=== PATIENT | male | born 1980 | race African-American/Black ===

== ENCOUNTER 2016-03-16 11:14 | Emergency (ER) | payer OTHER ==
[~2016-03-16] VITALS: Ht 175.3 cm; Wt 86.2 kg
[~2016-03-16 11:14] MED LIST: BENZ100C2 PO; PALI3TAB2 PO
[2016-03-16 11:30] VITALS: BP 122/80
[2016-03-16] MEDS ORDERED: AMOX500C PO (12:37)
--- NOTE | 2016-03-16 12:37 | PHYS DOC ---
Past Medical History Past Medical History: Bipolar, Depression Additional Past Medical Histor: HALLUCINATIONS Past Surgical History: No Surgical History Alcohol Use: Occasionally Drug Use: None Adult General Chief Complaint Chief Complaint: Congestion HPI HPI Patient is a 35 year old male presents to emergency department stating that he has been using Flonase at home and feels that he is probably been using it too much. He also states that he's been having issues with memory, and multiple other complaints is been going on for 15+ years. Patient states that he believes that he is dehydrated although entered the emergency department with multiple bottles of fluids to drink. Patient states he does not have a primary care physician he continues to state that he has a history of bipolar. Patient has been taken [id number] medications to help with his discomforts. Review of Systems Review of Systems Constitutional: Denies fever or chills [] Eyes: Denies change in visual acuity, redness, or eye pain [] HENT: nasal congestion denies sore throat [] Respiratory: Denies cough or shortness of breath [] Cardiovascular: No additional information not addressed in HPI [] Musculoskeletal: Denies back pain or joint pain [] Integument: Denies rash or skin lesions [] Neurologic: Denies headache, focal weakness or sensory changes [] Allergies Allergies Allergies Coded Allergies Type Severity Reaction Last Updated Verified paliperidone Allergy Unknown 03/16/16 No ziprasidone Allergy Unknown 03/16/16 No Physical Exam Physical Exam Constitutional: Well developed, well nourished, no acute distress, non-toxic appearance. [] HENT: Normocephalic, atraumatic, bilateral external ears normal, oropharynx moist, no oral exudates, nose normal. Bilateral tympanic membranes appear to be normal. Throat normal, nares appears to be very dry. Patient with tenderness over maxillary sinus areas. Eyes: PERRLA, EOMI, conjunctiva normal, no discharge. [] Neck: Normal range of motion, no tenderness, supple, no stridor. [] Cardiovascular:Heart rate regular rhythm, no murmur [] Lungs & Thorax: Bilateral breath sounds clear to auscultation [] Skin: Warm, dry, no erythema, no rash. [] Back: No tenderness Extremities: No tenderness, no cyanosis, no clubbing, ROM intact, no edema. [] Neurologic: Alert and oriented X 3, normal motor function, normal sensory function, no focal deficits noted. [] Psychologic: Affect normal, judgement normal, mood normal. [] Current Patient Data Vital Signs Vital Signs Date Time Temp Pulse Resp B/P Pulse Ox O2 Delivery O2 Flow Rate FiO2 03/16/16 11:30 98.3 96 18 99 Room Air 98.3 EKG EKG [] Radiology/Procedures Radiology/Procedures [] Course & Med Decision Making Course & Med Decision Making Pertinent Labs and Imaging studies reviewed. (See chart for details) Patient will be provided with amoxicillin prescription with recommendations to follow-up with a primary care physician within the next 5-7 days. Encourage patient to drink plenty of fluids as well as Gatorade or propel. Patient will be discharged home in stable condition signs and symptoms to return back to emergency department as been provided. Patient agrees with discharge instructions treatment regimens and follow-up recommendations. [] Dragon Disclaimer Dragon Disclaimer This electronic medical record was generated, in whole or in part, using a voice recognition dictation system. Departure Departure Impression: Primary Impression: Sinusitis Disposition: 01 HOME, SELF-CARE Condition: STABLE Referrals: NO PCP (PCP) Patient Instructions: Sinusitis, [id number] Additional Instructions: Activity as tolerated. Medication as prescribed. Tylenol or ibuprofen for fever chills or generalized body aches and discomfort. Drink plenty of fluids such as water or Gatorade or propel. Follow-up primary care physician in the next 5-7 days. Return back to emergency prior signs symptoms of become worse. Scripts Amoxicillin 500 Mg Capsule1 Cap PO BID #20 CAP Prov:JUSTINE QUINONES NP 03/16/16 JUSTINE QUINONES NP Mar 16, 2016 12:37
== END 2016-03-16 12:39 | disposition home or self-care (01) ==
LOC: ER 11:14
DX: J32.9 Chronic sinusitis, unspecified (principal); Z88.8 Allergy status to other drugs, medicaments and biological substances
CPT/HCPCS: 99283

== ENCOUNTER 2016-03-21 22:30 | Emergency (ER) | payer OTHER ==
[~2016-03-21 22:30] MED LIST changes: +AMOX500C PO
[2016-03-21 22:50] VITALS: BP 114/70
--- NOTE | 2016-03-21 23:27 | PHYS DOC ---
Past Medical History Past Medical History: Bipolar, Depression Additional Past Medical Histor: HALLUCINATIONS Past Surgical History: No Surgical History Alcohol Use: Occasionally Drug Use: None Adult General Chief Complaint Chief Complaint: KNEE INJURY [facility] HPI Patient is a 35 year old male presents emergency department stating that he hit his right leg on the couch and has an approximately 2 cm laceration. Bleeding is currently controlled. Patient is able to ambulate without difficulty denies any numbness or tingling down to his lower extremity. Patient states his tetanus immunization is not up-to-date. Review of Systems Review of Systems Constitutional: Denies fever or chills [] Eyes: Denies change in visual acuity, redness, or eye pain [] HENT: Denies nasal congestion or sore throat [] Respiratory: Denies cough or shortness of breath [] Cardiovascular: No additional information not addressed in HPI [] GI: Denies abdominal pain, nausea, vomiting, bloody stools or diarrhea [] : Denies dysuria or hematuria [] Musculoskeletal: Denies back pain or joint pain [] Integument: Denies rash or skin lesions. Laceration right knee Neurologic: Denies headache, focal weakness or sensory changes [] Allergies Allergies Allergies Coded Allergies Type Severity Reaction Last Updated Verified paliperidone Allergy Unknown 03/16/16 No ziprasidone Allergy Unknown 03/16/16 No Physical Exam Physical Exam Constitutional: Well developed, well nourished, no acute distress, non-toxic appearance. [] HENT: Normocephalic, atraumatic, bilateral external ears normal, oropharynx moist, no oral exudates, nose normal. [] Eyes: PERRLA, EOMI, conjunctiva normal, no discharge. [] Neck: Normal range of motion, no tenderness, supple, no stridor. [] Cardiovascular:Heart rate regular rhythm Lungs & Thorax: No respiratory distress noted Skin: Warm, dry, no erythema, no rash. Laceration approximately 2 cm to the right knee. Back: No tenderness Extremities: Right knee tenderness, no cyanosis, no clubbing, ROM intact, no edema. [] Neurologic: Alert and oriented X 3, normal motor function, normal sensory function, no focal deficits noted. [] Psychologic: Affect normal, judgement normal, mood normal. [] Current Patient Data Vital Signs Vital Signs Date Time Temp Pulse Resp B/P Pulse Ox O2 Delivery O2 Flow Rate FiO2 1/20/17 22:50 98.3 94 16 98 Room Air 98.3 EKG EKG [] Radiology/Procedures Radiology/Procedures [] Course & Med Decision Making Course & Med Decision Making Pertinent Labs and Imaging studies reviewed. (See chart for details) Site will be clean with soap and water and Steri-Strips are be placed over the area. Tetanus immunization was updated here in the emergency department. Patient will be discharged home with recommendations to keep the area clean and dry. Signs and symptoms of infection to watch for: Redness, warmth, tenderness or any yellow/greenish drainage of a come from the site. Patient will be discharged home in stable condition since symptoms to return back to the emergency department as been provided. Also recommended patient to follow up with the primary care physician in the next 3-5 days. Patient agrees with discharge instructions treatment regimens and follow-up recommendations. [] Dragon Disclaimer Dragon Disclaimer This electronic medical record was generated, in whole or in part, using a voice recognition dictation system. Departure Departure Impression: Primary Impression: Laceration of right knee Disposition: 01 HOME, SELF-CARE Condition: STABLE Referrals: NO PCP (PCP) Patient Instructions: Laceration Care, Adult, [id number], Sterile Tape Wound Closure Additional Instructions: Activity as tolerated. Keep the areas clean and dry. Clean the site with soap and water and apply antibiotic ointment to the sites twice a day. Watch for signs and symptoms of infection: Redness, warmth, tenderness or any yellow/greenish drainage of a come from the site. Follow-up with your primary care physician in the next 3-5 days. Return back to emergency prior signs and symptoms of become worse. JUSTINE QUINONES NP Mar 21, 2016 23:27
[2016-03-21] MEDS ORDERED: DIPHTH,PERTUSS(ACELL),TET TOX 0.5 ML DISP.SYRIN. VAX IM ONE (23:45)
--- NOTE | 2016-03-22 08:21 | RAD ---
Portable right knee with patella, 4 views, 03/21/2016: History: Injury, knee pain No fracture or dislocation is identified. No joint effusion is seen. There is mild subcutaneous edema anteriorly. IMPRESSION: No acute bony abnormality is detected.
== END 2016-03-22 00:02 | disposition home or self-care (01) ==
LOC: ER 22:30
DX: S81.011A Laceration without foreign body, right knee, initial encounter (principal); F31.9 Bipolar disorder, unspecified; Z88.8 Allergy status to other drugs, medicaments and biological substances; W22.8XXA Striking against or struck by other objects, initial encounter; Y93.89 Activity, other specified; Y92.89 Other specified places as the place of occurrence of the external cause; Y99.8 Other external cause status
CPT/HCPCS: 73564; 90471; 90715; 99284-25

== ENCOUNTER → 2016-05-12 | Outpatient (CLI) | payer OTHER ==
[2016-05-12 10:29] LABS: CALCIUM 9.3 mg/dL (8.5-10.1); CREATININE 1.1 mg/dL (0.7-1.3); GFR 92.2; POTASSIUM 4.3 mmol/L (3.5-5.1)
[2016-05-12 10:30] LABS: CHOLESTEROL/HDL RATIO 4.1
== END | disposition home or self-care (01) ==
LOC: LAB 09:48
PROVIDERS: ATTEND Psychiatry & Neurology Psychiatry
DX: F28 Other psychotic disorder not due to a substance or known physiological condition (principal)
CPT/HCPCS: 36415; 80048; 80061; 83036

== ENCOUNTER 2016-07-16 16:36 | Emergency (ER) | payer OTHER ==
[~2016-07-16] VITALS: Ht 175.3 cm; Wt 97.5 kg
[2016-07-16 16:48] VITALS: BP 134/74
[2016-07-16] MEDS ORDERED: FLUT9.9S NS (16:54)
[2016-07-16] MEDS ORDERED: FEXO1TAB31 PO (16:54)
--- NOTE | 2016-07-16 16:55 | PHYS DOC ---
Past Medical History Past Medical History: Bipolar, Depression Additional Past Medical Histor: HALLUCINATIONS Past Surgical History: No Surgical History Alcohol Use: Occasionally Drug Use: None Adult General Chief Complaint Chief Complaint: COUGH HPI HPI Patient is a 35 year old presents to the emergency department with a year-long history of nasal congestion and cough. He states he began using allergy medicine yesterday and it actually made him feel better. He reports no headache , no lightheadedness, no nausea, no vomiting. Reports her chest pain or abdominal pain. Review of Systems Review of Systems Constitutional: Denies fever or chills [] Eyes: Denies change in visual acuity, redness, or eye pain [] HENT: Denies nasal congestion or sore throat [] Respiratory: Denies cough or shortness of breath [] Cardiovascular: No additional information not addressed in HPI [] GI: Denies abdominal pain, nausea, vomiting, bloody stools or diarrhea [] : Denies dysuria or hematuria [] Musculoskeletal: Denies back pain or joint pain [] Integument: Denies rash or skin lesions [] Neurologic: Denies headache, focal weakness or sensory changes [] Endocrine: Denies polyuria or polydipsia [] Allergies Allergies Allergies Coded Allergies Type Severity Reaction Last Updated Verified paliperidone Allergy Intermediate 03/21/16 No ziprasidone Allergy Intermediate 03/21/16 No Physical Exam Physical Exam Constitutional: Well developed, well nourished, no acute distress, non-toxic appearance. [] HENT: Normocephalic, atraumatic, bilateral tympanic membranes with effusion, clear fluid. Anterior turbinates swollen and erythematous. He has clear nasal discharge. Posterior pharynx injected with postnasal drip present. Eyes: PERRLA, EOMI, conjunctiva normal, no discharge. [] Neck: Normal range of motion, no tenderness, supple, no stridor. [] Cardiovascular:Heart rate regular rhythm, no murmur [] Lungs & Thorax: Bilateral breath sounds clear to auscultation [] Skin: Warm, dry, no erythema, no rash. [] Back: No tenderness, no CVA tenderness. [] Extremities: No tenderness, no cyanosis, no clubbing, ROM intact, no edema. [] Neurologic: Alert and oriented X 3, normal motor function, normal sensory function, no focal deficits noted. [] Psychologic: Affect normal, judgement normal, mood normal. [] Current Patient Data Vital Signs Vital Signs Date Time Temp Pulse Resp B/P (MAP) Pulse Ox O2 Delivery O2 Flow Rate FiO2 07/16/16 16:48 98.8 97 20 98 Room Air 98.8 EKG EKG [] Radiology/Procedures Radiology/Procedures [] Course & Med Decision Making Course & Med Decision Making Pertinent Labs and Imaging studies reviewed. (See chart for details) [] Dragon Disclaimer Dragon Disclaimer This electronic medical record was generated, in whole or in part, using a voice recognition dictation system. Departure Departure Impression: Primary Impression: Allergic symptoms Disposition: HOME, SELF-CARE Condition: STABLE Referrals: NO PCP (PCP) Scripts Fluticasone Propionate (Flonase Allergy Relief) 9.9 Ml [place].susp 2 SPRAYS NS DAILY, #1 BOTTLE Prov: RODNEY ATWOOD APRN 07/16/16 Fexofenadine/Pseudoephedrine (MARLEEN-D 24 HOUR TABLET) 1 Each Tab.er.24h 1 TAB PO DAILY, #30 TAB 2 Refills Prov: RODNEY ATWOOD APRN 07/16/16 RODNEY ATWOOD APRN July 16, 2016 16:55
== END 2016-07-16 17:10 | disposition home or self-care (01) ==
LOC: ER 16:36
DX: T78.40XA Allergy, unspecified, initial encounter (principal); R05 Cough; R09.81 Nasal congestion; F31.9 Bipolar disorder, unspecified; Z88.8 Allergy status to other drugs, medicaments and biological substances
CPT/HCPCS: 99283

== ENCOUNTER 2016-10-03 15:09 | Emergency (ER) | payer OTHER ==
[~2016-10-03 15:09] MED LIST changes: +BENZ100C15 PO; -BENZ100C2 PO; +FEXO1TAB31 PO; +FLUT9.9S NS
[2016-10-03 15:55] VITALS: BP 128/80
[2016-10-03] MEDS ORDERED: FLUT9.9S NS (16:25)
[2016-10-03] MEDS ORDERED: AMOX1TAB61 PO (16:25)
[2016-10-03] MEDS ORDERED: PRED50TA PO (16:25)
--- NOTE | 2016-10-03 16:26 | PHYS DOC ---
Past Medical History Past Medical History: Bipolar, Depression Additional Past Medical Histor: HALLUCINATIONS Past Surgical History: No Surgical History Alcohol Use: Occasionally Drug Use: None Adult General Chief Complaint Chief Complaint: OTHER COMPLAINTS HPI HPI Patient is a 36 year old male with history of bipolar who presents today complaining of nasal congestion for 3 years but got worse in the last 3 days. Patient denies any fever. Patient states he has tried using qiwy-ted-[id number] nasal sprays with no relief. Patient is also a smoker. Patient also states he has history of chronic "clogged mind" for over 15 years with no brain injury. Review of Systems Review of Systems Constitutional: See history of present illness Eyes: Denies change in visual acuity, redness, or eye pain [] HENT: nasal congestion Respiratory: Denies cough or shortness of breath [] Cardiovascular: No additional information not addressed in HPI [] GI: Denies abdominal pain, nausea, vomiting, bloody stools or diarrhea [] : Denies dysuria or hematuria [] Musculoskeletal: Denies back pain or joint pain [] Integument: Denies rash or skin lesions [] Neurologic: "clogged mind" for 15 years. Allergies Allergies Allergies Coded Allergies Type Severity Reaction Last Updated Verified paliperidone Allergy Intermediate 03/21/16 No ziprasidone Allergy Intermediate 03/21/16 No Physical Exam Physical Exam Constitutional: Well developed, well nourished, no acute distress, non-toxic appearance. [] HENT: Normocephalic, atraumatic, bilateral external ears normal, oropharynx moist, no oral exudates, bilateral nasal turbinates are boggy and erythematous. Eyes: PERRLA, EOMI, conjunctiva normal, no discharge. [] Neck: Normal range of motion, no tenderness, supple, no stridor. [] Cardiovascular:Heart rate regular rhythm, no murmur [] Lungs & Thorax: Bilateral breath sounds clear to auscultation [] Abdomen: Bowel sounds normal, soft, no tenderness, no masses, no pulsatile masses. [] Skin: Warm, dry, no erythema, no rash. [] Back: No tenderness, no CVA tenderness. [] Extremities: No tenderness, no cyanosis, no clubbing, ROM intact, no edema. [] Neurologic: Alert and oriented X 3, normal motor function, normal sensory function, no focal deficits noted. [] Psychologic: Affect normal, judgement normal, mood normal. [] Current Patient Data Vital Signs Vital Signs Date Time Temp Pulse Resp B/P (MAP) Pulse Ox O2 Delivery O2 Flow Rate FiO2 10/03/16 15:55 98.7 80 18 95 Room Air 98.7 EKG EKG [] Radiology/Procedures Radiology/Procedures [] Course & Med Decision Making Course & Med Decision Making Pertinent Labs and Imaging studies reviewed. (See chart for details) This is a 36-year-old male patient who presents to the ED with symptoms consistent of sinusitis. He also states he has history of "clogged mind" for 15 years. He was discharged with Flonase, Augmentin and prednisone. He was instructed to consider smoking cessation. I provided this patient a doctor's list for follow-up with his chronic illnesses. Dragon Disclaimer Dragon Disclaimer This electronic medical record was generated, in whole or in part, using a voice recognition dictation system. Departure Departure Impression: Primary Impression: Chronic sinusitis Additional Impression: Smoking addiction Disposition: 01 HOME, SELF-CARE Condition: STABLE Referrals: NO PCP (PCP) Follow-up with one of the doctors from the list provided Patient Instructions: Sinusitis, [id number], Smoking Cessation Additional Instructions: You seen for chronic sinusitis. Consider smoking cessation. Take the prescribed medicines as ordered. Follow-up with one of the doctors from the list provided in the next 1-2 weeks. Scripts Fluticasone Propionate (Flonase Allergy Relief) 9.9 Ml [place].susp 2 SPRAYS NS DAILY, #1 BOTTLE Prov: RIVERA PADILLA APRN 10/03/16 Amoxicillin/Potassium Clav (AUGMENTIN 875-125 TABLET) 1 Each Tablet 1 TAB PO BID, #20 TAB Prov: RIVERA PADILLA APRN 10/03/16 Prednisone (PREDNISONE) 50 Mg Tablet 1 TAB PO DAILY, #5 TAB Prov: RIVERA PADILLA APRN 10/03/16 Problem Qualifiers Primary Impression: Chronic sinusitis Sinusitis location: maxillary Qualified Codes: J32.0 - Chronic maxillary sinusitis RIVERA PADILLA APRN Oct 03, 2016 16:26
== END 2016-10-03 16:30 | disposition home or self-care (01) ==
LOC: ER 15:09
DX: J32.0 Chronic maxillary sinusitis (principal); F17.200 Nicotine dependence, unspecified, uncomplicated; F31.9 Bipolar disorder, unspecified; Z88.8 Allergy status to other drugs, medicaments and biological substances
CPT/HCPCS: 99283

== ENCOUNTER 2016-12-18 18:02 | Emergency (ER) | payer SELFPAY ==
[~2016-12-18] VITALS: Ht 175.3 cm; Wt 117.9 kg
[~2016-12-18 18:02] MED LIST changes: +AMOX1TAB61 PO; +PRED50TA PO
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
[2016-12-18 20:59] VITALS: BP 118/81
== END 2016-12-18 21:16 | disposition home or self-care (01) ==
LOC: ER 18:02
DX: R42 Dizziness and giddiness (principal); M25.511 Pain in right shoulder; M25.512 Pain in left shoulder; F31.9 Bipolar disorder, unspecified; Z88.8 Allergy status to other drugs, medicaments and biological substances; V79.40XA Driver of bus injured in collision with unspecified motor vehicles in traffic accident, initial encounter; Y93.I9 Activity, other involving external motion; Y92.410 Unspecified street and highway as the place of occurrence of the external cause; Y99.8 Other external cause status
CPT/HCPCS: 70450; 72125; 99284-25

== ENCOUNTER → 2017-04-22 | Outpatient (CLI) | payer OTHER ==
[2017-04-22 12:57] LABS: ANION GAP 9 (6-14); BLOOD UREA NITROGEN 10 mg/dL (8-26); CALCIUM 9.5 mg/dL (8.5-10.1); CARBON DIOXIDE 28 mmol/L (21-32); CHLORIDE 101 mmol/L (98-107); CHOLESTEROL 214 mg/dL (0-200); CHOLESTEROL/HDL RATIO 4.8; CREATININE 1.2 mg/dL (0.7-1.3); GFR 82.9; GLUCOSE 88 mg/dL (70-99); HDLC 45 mg/dL (40-60); LDLC 149 mg/dL (0-100); NON-HDL CHOLESTEROL 169 mg/dL (0-129); POTASSIUM 4.1 mmol/L (3.5-5.1); SODIUM 138 mmol/L (136-145); TRIGLYCERIDES 102 mg/dL (0-150); VLDLC 20 mg/dL (0-40)
[2017-04-23 01:12] LABS: HEMOGLOBIN A1C 4.6 % (4.8-5.6)
== END | disposition home or self-care (01) ==
LOC: LAB 11:33
DX: F28 Other psychotic disorder not due to a substance or known physiological condition (principal); R79.89 Other specified abnormal findings of blood chemistry
CPT/HCPCS: 36415; 80048; 80061; 83036

== ENCOUNTER 2017-06-17 10:34 | Emergency (ER) | payer OTHER | END 2017-06-17 11:50 | disposition home or self-care (01) | LOC: ER 10:34 | DX: J32.0 Chronic maxillary sinusitis (principal); F31.9 Bipolar disorder, unspecified; F10.20 Alcohol dependence, uncomplicated; Z88.8 Allergy status to other drugs, medicaments and biological substances | CPT/HCPCS: 99283 ==

== ENCOUNTER 2018-04-05 15:13 | Emergency (ER) | payer OTHER ==
[~2018-04-05] VITALS: Ht 175.3 cm; Wt 108.9 kg
[~2018-04-05 15:13] MED LIST changes: +AMOX1TAB10 PO; +BENZ-8 PO; -BENZ100C15 PO
[2018-04-05 15:34] VITALS: BP 119/68
[2018-04-05] MEDS ORDERED: POLY17PO29 PO (15:49)
[2018-04-05] MEDS ORDERED: FLUT9.9S NS (15:49)
--- NOTE | 2018-04-05 15:50 | PHYS DOC ---
Past Medical History Past Medical History: Bipolar, Depression Additional Past Medical Histor: HALLUCINATIONS Past Surgical History: No Surgical History Alcohol Use: Heavy Drug Use: None Adult General Chief Complaint Chief Complaint: MULTIPLE COMPLAINTS [facility] HPI Patient is a 37 year old male with history of bipolar, depression, who presents to the ED today with multiple complaints. Patient states his had dry scaly feet since last year. Patient denies any known injury. Patient is also complaining of chronic constipation. Last bowel movement was today. Denies any nausea vomiting. Patient is also complaining of chronic nasal congestion. He states he has tried using cayf-det-rmlxwme Claritin/Zyrtec with minimal relief. Patient denies any fever. Denies any abdominal pain, denies any nausea vomiting. Denies any headache. Review of Systems Review of Systems Constitutional: Denies fever or chills [] Eyes: Denies change in visual acuity, redness, or eye pain [] HENT: Reports chronic nasal congestion, denies sore throat [] Respiratory: Denies cough or shortness of breath [] Cardiovascular: No additional information not addressed in HPI [] GI: Reports chronic constipation. Denies abdominal pain, nausea, vomiting, bloody stools or diarrhea [] : Denies dysuria or hematuria [] Musculoskeletal: Denies back pain or joint pain [] Integument: Reports dry scaly feet Neurologic: Denies headache, focal weakness or sensory changes [] All other systems were reviewed and found to be within normal limits, except as documented in this note. Allergies Allergies Allergies Coded Allergies Type Severity Reaction Last Updated Verified paliperidone Allergy Intermediate 03/21/16 No ziprasidone Allergy Intermediate 03/21/16 No Physical Exam Physical Exam Constitutional: Well developed, well nourished, no acute distress, non-toxic appearance. [] HENT: Normocephalic, atraumatic, bilateral external ears normal, oropharynx moist, no oral exudates, nose normal. [] Eyes: PERRLA, EOMI, conjunctiva normal, no discharge. [] Neck: Normal range of motion, no tenderness, supple, no stridor. [] Cardiovascular:Heart rate regular rhythm, no murmur [] Lungs & Thorax: Bilateral breath sounds clear to auscultation [] Abdomen: Bowel sounds normal, soft, no tenderness, no masses, no pulsatile masses. [] Skin: Warm, dry, no erythema, no rash. Bilateral feet dry and very scaly. Back: No tenderness, no CVA tenderness. [] Extremities: No tenderness, no cyanosis, no clubbing, ROM intact, no edema. [] Neurologic: Alert and oriented X 3, normal motor function, normal sensory function, no focal deficits noted. [] Psychologic: Affect normal, judgement normal, mood normal. [] Current Patient Data Vital Signs Vital Signs Date Time Temp Pulse Resp B/P (MAP) Pulse Ox O2 Delivery O2 Flow Rate FiO2 04/05/18 15:34 98.3 91 18 119/68 (85) 96 Room Air 98.3 EKG EKG [] Radiology/Procedures Radiology/Procedures [] Course & Med Decision Making Course & Med Decision Making Pertinent Labs and Imaging studies reviewed. (See chart for details) This is a 37-year-old male patient presenting to the ED today with multiple complaints. Patient is complaining of chronic dry scaly feet.-Recommended pedicure, recommended Eucerin or Vaseline to his feet. Recommended wearing socks and house shoes and avoid walking bare feet. Tetanus up-to-date. Also complaining of chronic constipation. Recommended magnesium citrate today and tomorrow. Recommended MiraLAX every day and docusate sodium. Also recommended dietary lifestyle changes including increasing dietary fiber as well as water intake. Also complaining of chronic nasal congestion. Recommended Flonase and Zyrtec. Provided PCP for follow-up. Dragon Disclaimer Dragon Disclaimer This electronic medical record was generated, in whole or in part, using a voice recognition dictation system. Departure Departure Impression: Primary Impression: Dry skin dermatitis Additional Impressions: Nasal congestion Chronic constipation Disposition: 01 HOME, SELF-CARE Condition: STABLE Referrals: JEANMARIE RINCON MD (PCP) follow up next week Patient Instructions: Constipation, Adult, Sinusitis Additional Instructions: For your chronic dry scaly feet.- We recommend pedicure, Eucerin or Vaseline to your feet. We also recommend wearing socks and house shoes and avoid walking bare feet. For chronic constipation. We recommend magnesium citrate today and tomorrow, MiraLAX every day and docusate sodium. Increase your dietary fiber intake as well as a water intake For chronic nasal congestion. We recommend Flonase and Zyrtec. Follow-up with your doctor in one week Scripts Polyethylene Glycol 3350 (MIRALAX) 17 Gm Powd.pack 1 PACKET PO DAILY, #30 PACKET 3 Refills Prov: RIVERA PADILLA APRN 04/05/18 Fluticasone Propionate (Flonase Allergy Relief) 9.9 Ml Chambers.susp 2 SPRAYS NS DAILY, #1 BOTTLE Prov: RIVERA PADILLA APRN 04/05/18 Problem Qualifiers RIVERA PADILLA APRN Apr 05, 2018 15:50
[2018-04-05] MEDS ORDERED: MAGNESIUM CITRATE 296 ML SOLUTION. PO ONE ×2 (16:00→16:45)
== END 2018-04-05 16:02 | disposition home or self-care (01) ==
LOC: ER 15:13
DX: K59.09 Other constipation (principal); R09.81 Nasal congestion; L85.3 Xerosis cutis; F31.9 Bipolar disorder, unspecified; Z88.8 Allergy status to other drugs, medicaments and biological substances
CPT/HCPCS: 99282; 99283

== ENCOUNTER 2018-07-12 12:11 | Emergency (ER) | payer OTHER ==
[~2018-07-12] VITALS: Ht 175.3 cm; Wt 92.5 kg
[~2018-07-12 12:11] MED LIST changes: +POLY17PO29 PO
[2018-07-12 12:55] VITALS: BP 108/79
--- NOTE | 2018-07-12 13:17 | PHYS DOC ---
Past Medical History Past Medical History: Bipolar, Depression Additional Past Medical Histor: HALLUCINATIONS Past Surgical History: No Surgical History Alcohol Use: Heavy Drug Use: None Adult General Chief Complaint Chief Complaint: COUGH HPI HPI Patient is a 37 year old -year-old male presents to the ED complaining of cough 2 months. Patient states that his cough feels like it's been getting worse. Patient has a history of seasonal allergies. States that he's been coughing up green stuff. Patient states he's been taking Claritin outpatient with some relief. Patient is a daily smoker. Denies chest pain, shortness of breath, fever, sore throat, nausea/vomiting, abdominal pain, diarrhea or headache. Review of Systems Review of Systems Constitutional: Denies fever or chills [] Eyes: Denies change in visual acuity, redness, or eye pain [] HENT: Denies nasal congestion or sore throat [] Respiratory: Complains of cough. Denies shortness of breath [] Cardiovascular: No additional information not addressed in HPI [] GI: Denies abdominal pain, nausea, vomiting, bloody stools or diarrhea [] : Denies dysuria or hematuria [] Musculoskeletal: Denies back pain or joint pain [] Integument: Denies rash or skin lesions [] Neurologic: Denies headache, focal weakness or sensory changes [] All other systems were reviewed and found to be within normal limits, except as documented in this note. Allergies Allergies Allergies Coded Allergies Type Severity Reaction Last Updated Verified paliperidone Allergy Intermediate 03/21/16 No ziprasidone Allergy Intermediate 03/21/16 No Physical Exam Physical Exam Constitutional: Well developed, well nourished, no acute distress, non-toxic appearance. [] HENT: Normocephalic, atraumatic, bilateral external ears normal, oropharynx moist, no oral exudates, nose normal. [] Eyes: PERRLA, EOMI, conjunctiva normal, no discharge. [] Neck: Normal range of motion, no tenderness, supple, no stridor. [] Cardiovascular:Heart rate regular rhythm, no murmur [] Lungs & Thorax: Bilateral breath sounds clear to auscultation [] Abdomen: Bowel sounds normal, soft, no tenderness, no masses, no pulsatile masses. [] Skin: Warm, dry, no erythema, no rash. [] Back: No tenderness, no CVA tenderness. [] Extremities: No tenderness, no cyanosis, no clubbing, ROM intact, no edema. [] Neurologic: Alert and oriented X 3, normal motor function, normal sensory function, no focal deficits noted. [] Psychologic: Affect normal, judgement normal, mood normal. [] Current Patient Data Vital Signs Vital Signs Date Time Temp Pulse Resp B/P (MAP) Pulse Ox O2 Delivery O2 Flow Rate FiO2 07/12/18 12:55 98.2 111 16 108/79 (89) 99 Room Air 98.2 EKG EKG [] Radiology/Procedures Radiology/Procedures []PROCEDURE: CHEST AP ONLY Single view chest dated 07/12/2018: No comparison available. Clinical Indication: Cough for years.. Findings: Single upright portable exam of the chest was performed. Heart size and mediastinal contours are within normal limits given technique. The lungs are clear without evidence of focal consolidation. Vascular interstitium is within normal limits. Impression:: Negative portable chest. Course & Med Decision Making Course & Med Decision Making Pertinent Labs and Imaging studies reviewed. (See chart for details) []Discussed imaging findings with patient. Patient will be treated outpatient with an inhaler and short course of prednisone. Discussed symptomatic treatment, smoking cessation and follow-up if symptoms persist. Provided contact information/education. Discussed reasons to return to the ED. Patient understands and agrees with plan. Dragon Disclaimer Dragon Disclaimer This electronic medical record was generated, in whole or in part, using a voice recognition dictation system. Departure Departure Impression: Primary Impression: Cough Additional Impression: Seasonal allergies Disposition: 01 HOME, SELF-CARE Condition: IMPROVED Referrals: JEANMARIE RINCON MD (PCP) Patient Instructions: Allergies, Generic, Cough, Adult Scripts Albuterol Sulfate (PROAIR HFA INHALER) 8.5 Gm Hfa.aer.ad 1 PUFF INH PRN Q6HRS PRN for SHORTNESS OF BREATH, #1 INHALER 0 Refills Prov: FLAVIO BROWN 07/12/18 Prednisone (PREDNISONE) 20 Mg Tablet 2 TAB PO DAILY for 5 Days, #10 TAB Prov: FLAVIO BROWN 07/12/18 Problem Qualifiers FLAVIO BROWN July 12, 2018 13:17
--- NOTE | 2018-07-12 13:32 | RAD ---
Single view chest dated 07/12/2018: No comparison available. Clinical Indication: Cough for years.. Findings: Single upright portable exam of the chest was performed. Heart size and mediastinal contours are within normal limits given technique. The lungs are clear without evidence of focal consolidation. Vascular interstitium is within normal limits. Impression:: Negative portable chest. Electronically signed by: Roderick Luna MD (07/12/2018 1:29 PM) [id number]
[2018-07-12] MEDS ORDERED: ALBU2.5V8 INH (13:54)
[2018-07-12] MEDS ORDERED: PRED20TA PO (13:54)
== END 2018-07-12 14:21 | disposition home or self-care (01) ==
LOC: ER 12:11
DX: J30.2 Other seasonal allergic rhinitis (principal); F10.20 Alcohol dependence, uncomplicated; F31.9 Bipolar disorder, unspecified; Y90.9 Presence of alcohol in blood, level not specified; Z88.8 Allergy status to other drugs, medicaments and biological substances
CPT/HCPCS: 71045; 99283

== ENCOUNTER 2019-04-19 13:36 | Emergency (ER) | payer OTHER ==
[~2019-04-19] VITALS: Ht 175.3 cm; Wt 100.0 kg
[~2019-04-19 13:36] MED LIST changes: +ALBU2.5V8 INH; +PRED20TA PO
[2019-04-19] MEDS ORDERED: METH4TAB2 PO (14:23)
--- NOTE | 2019-04-19 14:23 | PHYS DOC ---
Past Medical History Past Medical History: Bipolar, Depression Additional Past Medical Histor: HALLUCINATIONS (MARILYN ROLAND APRN) Past Surgical History: No Surgical History (MARILYN ROLAND APRN) Smoking Status: Current Every Day Smoker Alcohol Use: Heavy Drug Use: None (MARILYN ROLAND APRN) Adult General Chief Complaint Chief Complaint: Congestion HPI HPI Patient is a 38 year old male who presents with nasal congestion and dry mouth has been ongoing for several months. He states that for while he was taking Afrin daily and did this for several months and has been having issues ever since. The patient states he has tried Flonase, Claritin, Mucinex, and other unknown ahws-mwi-lqommch medicines. He states he's been seen in multiple ERs for this condition and still having issues. He denies any pain or fever this time. He also states that he's been having dry feet is improving lotion on it but is out of Neosporin. Denies additional symptoms Complete ROS were reviewed and found to be within normal limits, except as documented in the HPI (MARILYN ROLAND APRN) Allergies Allergies Allergies Coded Allergies Type Severity Reaction Last Updated Verified paliperidone Allergy Intermediate 03/21/16 No ziprasidone Allergy Intermediate 03/21/16 No (MARILYN PARSONS DO) Physical Exam Physical Exam Constitutional: Well developed, well nourished, no acute distress, non-toxic appearance. [] HENT: Normocephalic, atraumatic, bilateral external ears normal, oropharynx moist, no oral exudates, nose turbinates inflamed. Eyes: PERRLA, EOMI, conjunctiva normal, no discharge. [] Neurologic: Alert and oriented X 3, normal motor function, normal sensory function, no focal deficits noted. [] Psychologic: Affect normal, judgement normal, mood normal. [] (MARILYN ROLAND APRN) Current Patient Data Vital Signs Vital Signs Date Time Temp Pulse Resp B/P (MAP) Pulse Ox O2 Delivery O2 Flow Rate FiO2 04/19/19 14:30 98.1 109 16 142/87 (105) 96 Room Air 98.1 (MARILYN PARSONS DO) EKG EKG [] (MARILYN ROLAND APRN) Radiology/Procedures Radiology/Procedures [] (MARILYN ROLAND APRN) Course & Med Decision Making Course & Med Decision Making Pertinent Labs and Imaging studies reviewed. (See chart for details) Discussed with the patient that he likely has chronic sinusitis secondary to overuse of Afrin. Will refer to ENT and start on Medrol Dose pack. (MARILYN ROLAND APRN) Dragon Disclaimer Dragon Disclaimer This electronic medical record was generated, in whole or in part, using a voice recognition dictation system. (MARILYN ROLAND APRN) Departure Departure Impression: Primary Impression: Chronic sinusitis Disposition: HOME, SELF-CARE Condition: STABLE Referrals: NO PCP (PCP) CHRISTEN LEES MD Patient Instructions: Sinusitis Additional Instructions: Thank you for visiting [facility]. We appreciate you trusting us with your care. If any additional problems come up don't hesitate to return to visit us. Please follow up with your primary care provider so they can plan additional care if needed and know about the problem that you had. If symptoms worsen come back to the Emergency Department. Any concerning symptoms that start such as chest pain, shortness of air, weakness or numbness on one side of the body, running high fevers or any other concerning symptoms return to the ER. 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 I was available for consultation as needed during the patient's visit in the emergency department. I agree with the clinical impression, plan, and disposition. (MARILYN PARSONS DO) MARILYN ROLAND APRN Apr 19, 2019 14:23 MARILYN PARSONS DO Apr 20, 2019 21:48
[2019-04-19 14:30] VITALS: BP 142/87
== END 2019-04-19 15:00 | disposition home or self-care (01) ==
LOC: ER 13:36
DX: J32.9 Chronic sinusitis, unspecified (principal); R68.2 Dry mouth, unspecified; F31.9 Bipolar disorder, unspecified; F17.200 Nicotine dependence, unspecified, uncomplicated; F10.20 Alcohol dependence, uncomplicated; Y90.9 Presence of alcohol in blood, level not specified; Z88.8 Allergy status to other drugs, medicaments and biological substances
CPT/HCPCS: 99283

== ENCOUNTER → 2019-11-22 | Outpatient (CLI) | payer OTHER ==
[~2019-11-22] MED LIST changes: +METH4TAB2 PO
[2019-11-22 14:14] LABS: CALCIUM 9.2 mg/dL (8.5-10.1); CREATININE 1.1 mg/dL (0.7-1.3); GFR 90.2; POTASSIUM 4.1 mmol/L (3.5-5.1)
[2019-11-22 14:18] LABS: CHOLESTEROL/HDL RATIO 5.6
[2019-11-23 02:09] LABS: HEMOGLOBIN A1C 5.5 % (4.8-5.6)
== END | disposition home or self-care (01) ==
LOC: LAB 13:25
PROVIDERS: ATTEND Psychiatry & Neurology Psychiatry
DX: F28 Other psychotic disorder not due to a substance or known physiological condition (principal)
CPT/HCPCS: 36415; 80048; 80061; 83036

== ENCOUNTER 2021-05-13 12:06 | Emergency (ER) | payer MEDICAID, OTHER ==
[~2021-05-13] VITALS: Ht 180.3 cm; Wt 97.7 kg
[2021-05-13 12:07] VITALS: BP 136/87
[2021-05-13] MEDS ORDERED: IOHEXOL 300 MG/ML 100ML VIAL. IV ONE (13:00)
[2021-05-13] MEDS ORDERED: CONTRAST GIVEN. MC PRN (13:15)
--- NOTE | 2021-05-13 13:58 | RAD ---
Examination: CT soft tissue neck with IV contrast HISTORY: History of throat feels tight COMPARISON: None available TECHNIQUE: Axial CT images of the soft tissue neck were performed IV contrast. Coronal and sagittal r eformats are performed Exposure: One or more of the following individualized dose reduction techniques were utilized for thi s examination: 1. Automated exposure control 2. Adjustment of the mA and/or kV according to patient size 3. Use of iterative reconstruction technique. FINDINGS: The bilateral parotid glands, masticators spaces, grossly appears unremarkable. The visualized vallec meg, piriform sinuses grossly appears unremarkable No significant enlargement of the tonsils or peritonsillar abscess identified. The bilateral paraphar yngeal spaces grossly appears unremarkable The visualized epiglottis grossly appears unremarkable. Central airways are patent. The visualized th yroid gland grossly appears unremarkable. The apical lungs are clear. No evidence of lytic bony destr uctive lesion. IMPRESSION: 1. No evidence of peritonsillar abscess. Electronically signed by: Elie Fink MD (05/13/2021 1:56 PM) [id number]
--- NOTE | 2021-05-13 14:02 | PHYS DOC ---
Past Medical History Past Medical History: Bipolar, Depression Additional Past Medical Histor: HALLUCINATIONS, PSYCHOSIS Past Surgical History: No Surgical History Smoking Status: Never Smoker Alcohol Use: None Drug Use: None General Adult EDM: Chief Complaint: SORE THROAT HPI: HPI: Patient is a 40-year-old male that presents today with sore throaT and increased thirst. Patient states he takes a lot of medications for his psychiatric disorders and over the last 6 months he has noticed an increase in his thirst he is also having some throat discomfort when he swallows due to increased nasal congestion and drainage in his throat. When asked if he had taken any Claritin or Flonase for this he said he did in the past and it did help but he did not continue it because he did not have a prescription. Patient states that over the last couple months he has had to drink a lot of fluid water ice chips things like that to help with the dryness of his throat and to help with throat pain. Patient sees [facility] and they are the ones that manage his medications for his psychiatric illnesses, I did asked patient if he has mentioned his issues to his provider at [facility] he said yes and they have made adjustments to his medication but they are not helping. Review of Systems: Review of Systems: Constitutional: Denies fever or chills. [] Eyes: Denies change in visual acuity. [] HENT: Sore throat denies nasal congestion Respiratory: Denies cough or shortness of breath. [] Cardiovascular: Denies chest pain or edema. [] GI: Denies abdominal pain, nausea, vomiting, bloody stools or diarrhea. [] : Denies dysuria. [] Musculoskeletal: Denies back pain or joint pain. [] Integument: Denies rash. [] Neurologic: Denies headache, focal weakness or sensory changes. [] Endocrine: Denies polyuria or polydipsia. [] Lymphatic: Denies swollen glands. [] Psychiatric: Denies depression or anxiety. [] Heart Score: C/O Chest Pain: No Risk Factors: Risk Factors: DM, Current or recent (<one month) smoker, HTN, HLP, family history of CAD, obesity. Risk Scores: Score 0 - 3: 2.5% MACE over next 6 weeks - Discharge Home Score 4 - 6: 20.3% MACE over next 6 weeks - Admit for Clinical Observation Score 7 - 10: 72.7% MACE over next 6 weeks - Early Invasive Strategies Current Medications: Current Medications Medications (Trade) Dose Ordered Sig/Natalie Start Time Stop Time Status Last Admin Dose Admin Info (CONTRAST GIVEN -- Rx MONITORING) 1 each PRN DAILY PRN 05/13/21 13:15 05/15/21 13:14 Iohexol (Omnipaque 300 Mg/ml) 75 ml 1X ONCE 05/13/21 13:00 05/13/21 13:04 DC 05/13/21 13:24 75 ML Allergies: Allergies: Allergies Coded Allergies Type Severity Reaction Last Updated Verified paliperidone Allergy Intermediate 03/21/16 No ziprasidone Allergy Intermediate 03/21/16 No Physical Exam: PE: Constitutional: Well developed, well nourished, no acute distress, non-toxic appearance. [] HENT: Normocephalic, atraumatic, bilateral external ears normal, oropharynx moist, no oral exudates, nose normal. [] Eyes: PERRLA, EOMI, conjunctiva normal, no discharge. [] Neck: Normal range of motion, no tenderness, supple, no stridor. [] Cardiovascular:Heart rate regular rhythm, no murmur [] Lungs & Thorax: Bilateral breath sounds clear to auscultation [] Abdomen: Bowel sounds normal, soft, no tenderness, no masses, no pulsatile masses. [] Skin: Warm, dry, no erythema, no rash. [] Back: No tenderness, no CVA tenderness. [] Extremities: No tenderness, no cyanosis, no clubbing, ROM intact, no edema. [] Neurologic: Alert and oriented X 3, normal motor function, normal sensory function, no focal deficits noted. [] Psychologic: Affect normal, judgement normal, mood normal. [] Current Patient Data: Vital Signs: Vital Signs Date Time Temp Pulse Resp B/P (MAP) Pulse Ox O2 Delivery O2 Flow Rate FiO2 05/13/21 12:07 98.1 82 18 136/87 (103) 97 Room Air 98.1 EKG: EKG: [] Radiology/Procedures: Radiology/Procedures: [REASON: throat feels tight PROCEDURE: CT SOFT TISSUE NECK W/CONTRAST Examination: CT soft tissue neck with IV contrast HISTORY: History of throat feels tight COMPARISON: None available TECHNIQUE: Axial CT images of the soft tissue neck were performed IV contrast. Coronal and sagittal reformats are performed Exposure: One or more of the following individualized dose reduction techniques were utilized for this examination: 1. Automated exposure control 2. Adjustment of the mA and/or kV according to patient size 3. Use of iterative reconstruction technique. FINDINGS: The bilateral parotid glands, masticators spaces, grossly appears unremarkable. The visualized vallecula, piriform sinuses grossly appears unremarkable No significant enlargement of the tonsils or peritonsillar abscess identified. The bilateral parapharyngeal spaces grossly appears unremarkable The visualized epiglottis grossly appears unremarkable. Central airways are patent. The visualized thyroid gland grossly appears unremarkable. The apical lungs are clear. No evidence of lytic bony destructive lesion. IMPRESSION: 1. No evidence of peritonsillar abscess. Electronically signed by: Elie Fink MD (05/13/2021 1:56 PM) [id number]] Course & Med Decision Making: Course & Med Decision Making Pertinent Labs and Imaging studies reviewed. (See chart for details) Reviewed radiological results with patient did inform him there was no acute processes at this time. Not sure what is causing his throat issues but have recommended patient take jmvt-fwd-ibqsgnr Claritin 1 tablet daily and also Flonase nasal spray 2 sprays twice daily into each side of his nares to help with nasal congestion, also advised patient to follow-up with his mental health provider for them to review his medications to see if his medications can be adjusted to help with adverse effects from his psychiatric meds which are causing dry mouth. Patient verbalized understanding of this and agreeable to the plan of care. [] Rosalie Disclaimer: Rosalie Disclaimer: This electronic medical record was generated, in whole or in part, using a voice recognition dictation system. Departure Departure Impression: Primary Impression: Nasal congestion Additional Impression: Sore throat, chronic Disposition: 01 HOME / SELF CARE / HOMELESS Condition: STABLE Referrals: NO PCP (PCP) Patient Instructions: Allergic Rhinitis, Sore Throat Additional Instructions: Gfwd-ssh-zqdlaxc Claritin or Zyrtec 1 tablet daily to help with nasal congestion Nwwz-gxo-kapnjer Flonase nasal spray 2 sprays each side of your nose twice daily to help with nasal congestion Throat lozenges to help with a dry mouth and sore throat Follow-up with your mental health provider at [facility] for further management of your medications that have the adverse effect of dry mouth. Follow-up with one of the providers listed below for further management of your nasal congestion and to establish primary care [facility] [address] [place] [address] [facility] [address] [place] [address] [facility] [address] [facility] [place] [address] [facility] [address] [place] [address] [facility] [address] [place] [address] [address] [address] [place] [address] [address] [address] [place] [address] [facility] [address] [place] [address] [facility] [address] [place] [address] [facility] [address] [place] [address] JESSICA LEDESMA APRN May 13, 2021 14:02
== END 2021-05-13 14:54 | disposition home or self-care (01) ==
LOC: ER 12:06
DX: J02.9 Acute pharyngitis, unspecified (principal); R09.81 Nasal congestion; F31.9 Bipolar disorder, unspecified; Z88.8 Allergy status to other drugs, medicaments and biological substances
CPT/HCPCS: 70491; 99285; Q9967